=== PATIENT | male | born 1980 | race Caucasian/White ===

== ENCOUNTER 2023-08-04 18:48 | Observation (INO) ==
[2023-08-04] MEDS ORDERED: ONDANSETRON INJ 2 MG/ML 2 ML VIAL IV STA ×2 (19:22→20:36)
[2023-08-04] MEDS ORDERED: MoRPHine SULFATE 4 MG/ML 1 ML CARP\\VIAL IV STA (19:22)
[2023-08-04] MEDS ORDERED: OPTIRAY 320 100ml IV ONE (19:49)
[2023-08-04 19:55] LABS: iSTAT Creatinine 0.8 mg/dl (0.6-1.3); iSTAT Ionized Calcium 1.16 mmol/l (1.12-1.32); iSTAT Potassium 4.1 mmol/L (3.3-5.0)
[2023-08-04 19:55] LABS: Basophils # (auto) 0.04 K/uL (0.00-0.20); Basophils % (auto) 0.6 %; Eosinophils # (auto) 0.04 K/uL (0.00-0.50); Eosinophils % (auto) 0.6 %; Hematocrit (blood only) 40.6 % (42.0-52.0); Hemoglobin 14.9 g/dl (14.0-18.0); Immature Granulocytes # (auto) 0.02 K/uL (0.01-0.20); Immature Granulocytes % (auto) 0.3 %; Lymphocytes % (auto) 13.4 %; Mean Corpuscular Hemoglobin 32.3 pg (25.0-34.0); Mean Corpuscular Hgb Conc 36.7 g/dL (32.0-36.0); Mean Corpuscular Volume 87.9 fL (80.0-100.0); Mean Platelet Volume 9.4 fL (9.4-12.4); Monocytes # (auto) 0.37 K/uL (0.11-0.59); Monocytes % (auto) 5.5 %; Neutrophils # (auto) 5.35 K/uL (1.40-6.50); Neutrophils % (auto) 79.6 %; Platelet Count 264 K/uL (130-400); RDW Coefficient of Variation 11.3 % (11.5-14.5); RDW Standard Deviation 36.3 fL (36.4-46.3); Red Blood Count 4.62 M/uL (4.70-6.10); White Blood Count 6.72 K/ul (4.8-10.8)
--- NOTE | 2023-08-04 20:08 | CT Scan Report ---
Exam(s): CT ABDOMEN + PELVIS With Contrast IV Amt: 90ml EXAM: CT Abdomen and Pelvis With Intravenous Contrast CLINICAL HISTORY: Reason for exam: Abd pain. TECHNIQUE: Axial computed tomography images of the abdomen and pelvis with intravenous contrast. CTDI is 16.68 mGy and DLP is 963.26 mGy-cm. Automated exposure control was utilized for the study. A dose lowering technique was utilized adhering to the principles of ALARA. CONTRAST: Patient received 90ml of IV contrast COMPARISON: No relevant prior studies available. FINDINGS: Lung bases: Unremarkable. No mass. No consolidation. ABDOMEN: Liver: Unremarkable. No mass. Gallbladder and bile ducts: Unremarkable. No calcified stones. No ductal dilation. Pancreas: Unremarkable. No mass. No ductal dilation. Spleen: Unremarkable. No splenomegaly. Adrenals: Unremarkable. No mass. Kidneys and ureters: Obstructing 2 mm LEFT UVJ stone. Mild hydronephrosis of the LEFT kidney with moderate periureteral fluid and perinephric fluid, highly concerning for forniceal rupture or partial ureter rupture. Stomach and bowel: Diverticulosis, without acute diverticulitis. No small bowel obstruction. No free intraperitoneal air. PELVIS: Appendix: Normal appendix. Bladder: Unremarkable. No mass. Reproductive: Unremarkable as visualized. ABDOMEN and PELVIS: Intraperitoneal space: Unremarkable. No free air. No significant fluid collection. Bones/joints: No acute fracture. No dislocation. Soft tissues: Unremarkable. Vasculature: Unremarkable. No abdominal aortic aneurysm. Lymph nodes: Unremarkable. No enlarged lymph nodes. IMPRESSION: Obstructing 2 mm LEFT UVJ stone. Mild hydronephrosis of the LEFT kidney with moderate periureteral fluid and perinephric fluid, highly concerning for forniceal rupture or partial ureter rupture. Electronically signed by: Ney Betancur MD 08/04/23 20:07 PM
[2023-08-04 20:09] LABS: Alanine Aminotransferase 21 U/L (7-52); Albumin Globulin Ratio 1.7 (0.9-2); Albumin Level 4.9 gm/dl (3.4-5.0); Alkaline Phosphatase 78 U/L (34-104); Anion Gap 9 (3-11); Aspartate Aminotransferase 22 U/L (13-39); BUN Creatinine Ratio 10.8 (10-20); Bilirubin,Total 0.4 mg/dl (0.2-1.0); Blood Urea Nitrogen 10 mg/dl (6-23); Carbon Dioxide 25 mmol/L (21-32); Chloride 92 mmol/L (98-107); Est GFR (African American) 118.6 ml/min; Est GFR (Non-African American) 102.3 ml/min; Globulin 2.9 gm/dl (2.5-4.0); Glucose 107 mg/dl (70-99(Fasting)); Lipase 21 U/L (11-82); Potassium 4.1 mmol/L (3.5-5.1); Sodium 126 mmol/L (136-145); Total Protein 7.8 gm/dl (6.0-8.3)
[2023-08-04 20:12] LABS: Appearance Urine Cloudy (Clear); Bacteria Urine Automated Negative (Negative); Bilirubin Urine Negative (Negative); Blood Urine Negative (Negative); Cast Urine Automated 0 /lpf (0-5); Color Urine Yellow; Glucose Urine UA Negative (Negative); Ketones Urine Negative (Negative); Leukocyte Esterase Urine Negative (Negative); Nitrite Urine Negative (Negative); Protein Urine Negative (Negative); RBC Urine Automated 0-4 /hpf (0-4); Specific Gravity Urine 1.009 (1.000-1.030); Urobilinogen Urine Negative (Negative); WBC Urine Automated 0 /hpf (0-5); pH Urine >= 9.0 (4.5-7.5)
[2023-08-04] MEDS ORDERED: KETOROLAC TROMETHAMINE 15 MG/ML VIAL IV ONE (20:36)
[2023-08-04] MEDS ORDERED: HYDROmorphone INJ 0.5 MG/0.5 ML SYR IV STA (20:36)
[2023-08-04] MEDS ORDERED: TAMSULOSIN HCL 0.4 MG CAP PO ONE (21:24)
--- NOTE | 2023-08-04 21:24 | Urology Consultation ---
Date of Consultation August 04, 2023 Assessment & Plan (1) Nephrolithiasis: I discussed with the treating emergency room physician the patient is going to be admitted on the hospitalist service. From a urologic perspective we recommend proceeding as follows: Provide IV fluid for hydration Provide patient Flomax for maximal expulsive therapy Provide analgesics Provide antiemetics Strain all urine and save any kidney stones that he passes so they can be properly analyzed Due to concern the patient has a forniceal or ureteral rupture is recommended the patient be admitted to the hospital for observation. At the present time there is no needFor an emergent urologic procedure as patient is normotensive without tachycardia or fever. He also does not have acute kidney injury or leukocytosis. If the patient does develop any fevers, tachycardia, or hypotension or additional signs suggestive of sepsis ureteral stent may need to be performed on an emergent basis, therefore recommend making the patient n.p.o. except for medications at the present time Additional recommendations were forthcoming based on his clinical course as unfolds History of Present Illness Reason for Consultation: Nephrolithiasis History of Present Illness Who was in his usual state of health feeling fine until approximately 5:30 PM this evening when he developed severe left-sided flank pain with some radiation to the front of his abdomen. He has had associated nausea and vomiting. He denies any fevers or shakes but did have occasional chills. Patient denies any dysuria or hematuria but he is having urinary frequency. He has no history of kidney stones in the past. This is a 42-year-old male since arrival to hospital the patient has had labs and imaging which independent reviewed. CT scan of the abdomen pelvis showed the patient had an obstructing 2 mm kidney stone at the left ureterovesical junction resulting in mild hydronephrosis. There is also some periureteral and perinephric fluid which was concerning for forniceal or ureteral rupture. Labs include a CBC were white blood cell count was normal. Hemoglobin was normal and hematocrit was slightly low at 40.6. The patient's platelet count was also within the normal range. Chemistry profile showed sodium was 126 with normal potassium. BUN and creatinine were within normal range. There is no elevation of patient's LFTs or lipase. Urinalysis not indicative of infection. At the time of my interview the patient was resting comfortably in bed and he was in no distress. Concerning past medical history the patient is treated for trigeminal neuralgia and hypertension Concerning past surgical history the patient has had neurovascular decompression for his trigeminal neuralgia Concerning social history he is a non-smoker Concerning family history he denies family history of kidney stones. Allergies Allergy/AdvReac Type Severity Reaction Status Date / Time No Known Allergies Allergy Unverified 07/31/20 08:24 Home Medications Medication Instructions Recorded Confirmed Type gabapentin 800 mg tablet 900 mg PO BID 07/31/20 07/31/20 History oxcarbazepine 600 mg tablet 900 mg PO BID 07/31/20 07/31/20 History (Trileptal) Patient History Medical History (Updated 08/04/23 @ 21:21 by Gary Tavarez PA-C) Trigeminal neuralgia Social History Smoking Status: Never smoker Hx Alcohol Use: No Hx Substance Use: No Preferred Language: Bolivian Visual Impairment: No Limitations Hearing Ability: Normal Beliefs That Will Affect Care: None Current Living Situation: Family current occupational status: employed How many Children do You have: 2 Feels Safe at Home: Yes Review of Systems Constitutional: + chills; no fever Ear, Nose, Mouth, Throat: no ear pain Respiratory: no cough Cardiovascular: no chest pain Gastrointestinal: + abdominal pain (Radiating from left flank), + nausea and + vomiting Genitourinary: + as per Subjective / HPI Musculoskeletal: + back pain (Left flank) Integumentary: no rash Neurologic: no localized weakness Physical Exam Constitutional: WD/WN, vitals as above Eyes: no conjunctival abnormality ENMT: Ears: no hearing impairment and no external ear abnormality Mouth: no oropharynx abnormality Neck: trachea midline Respiratory: normal respiratory effort; no respiratory distress and no labored breathing Cardiovascular: Rate/Rhythm: regular rate and regular rhythm Gastrointestinal (Abdomen): Abdomen is soft and nonrigid. It is nondistended. There is no pain with palpation. Musculoskeletal: No calf tenderness Skin: no rashes, warm and dry Neurologic: moves all extremities Psychiatric: A+Ox3, euthymic affect Genitourinary: Patient had slight/minimal CVA tenderness with percussion on the left. No CVA tenderness with percussion on the right Results & Data Vital Signs (Past 12 Hours) Vital Signs Temp Pulse Resp BP Pulse Ox O2 Del Method 08/04/23 20:28 72 08/04/23 19:27 146/98 H 08/04/23 19:02 36.5 C 88 26 H 100 Room Air PG Care Time/CCT Total # of Minutes Spent Total Time Spent with Patient: Total time spent is greater than 50% in coordination of care (as documented) at patient's floor/unit and/or counseling patient: Coding Level of Care Code 03157 IN/OBS CONSULT LVL 5,80M Diagnoses Nephrolithiasis N20.0
--- NOTE | 2023-08-04 21:25 | Emergency Department Note ---
Impression & Plan Nephrolithiasis, Urethral tear ED Provider Note NAME: DAVID AMADOR AGE: 42 SEX: M : 1980 ARRIVES VIA: Walk-In INFORMANT: Patient, ED PROVIDER(S): Brittany Dawson MD CHIEF COMPLAINT: Abdominal pain HPI: This is a 42-year-old male presenting for severe abdominal pain. Patient states that at 530 he was eating dinner. He noted abruptly that he had significant abdominal pain, left-sided. He notes it was left lower quadrant rating into the groin. Call 911 and he has had persistent nausea since then. He does not excruciating pain. Otherwise no symptoms prior or yesterday. No fevers, chills, chest pain or shortness of breath. Patient notes no hematuria. ROS: See above HPI for pertinent positives & negatives. A total of 10 systems reviewed and were otherwise negative. PAST MEDICAL HISTORY: See Below PAST SURGICAL HISTORY: See Below FAMILY HISTORY: See Below SOCIAL HISTORY: See Below HOME MEDICATIONS: See Below ALLERGIES: See Below VITALS: See Below PHYSICAL EXAMINATION: General: Writhing in stretcher due to pain Head: Normocephalic and atraumatic Eyes: Normal inspection, extraocular muscles intact, no conjunctival pallor Ear, nose, throat: Normal external exam Neck: Normal range of motion Respiratory: Patient is in no respiratory distress, lungs clear to auscultation bilaterally Cardiovascular: RRR without murmur appreciated GI: Soft, left lower quadrant tenderness without rebound Extremities: pulses intact with good cap refills, no LE pitting edema or calf tenderness Neuro: The patient awake and alert, appropriately conversive,no focal decifits Skin: Warm, dry, and intact MEDICAL DECISION MAKING: This is a 42-year-old male presenting for severe abdominal pain. Left lower quadrant rating to groin. Consider SBO, pancreatitis, diverticulitis, renal colic, pyelonephritis. Patient had CT imaging started at triage. Results come back as 2 mm left UVJ stone with concern for forniceal rupture versus partial ureter tear. Patient's urinalysis reveals no signs of UTI at this time. Otherwise incidentally patient is hyponatremic to 126 of unclear etiology at this time. Discussed findings with on-call PA for urology. He spoke with attending who recommends admission for observation, n.p.o. status. If any fevers or persistent pain, will require stenting as per urology. The meantime will admit to medicine for hyponatremia renal colic and this suspected forniceal versus partial ureteral tear. Triage Nursing notes reviewed. Prior medical records reviewed Vital Signs: reviewed and remarkable for no significant abnormalities Differential diagnosis: ER treatment provided: See below Diagnostics interpreted by me: ECG: None Cardiac Monitoring: An order was placed for continuous cardiac monitoring. The monitor shows a rate of 74 with sinus rhythm. Laboratory studies: As stated above and show below. Imaging studies: See below. Consultation(s): None Past Med/Surg History Medical History (Updated 08/05/23 @ 00:46 by Brittany Dawson MD) Trigeminal neuralgia Social History Smoking Status: Never smoker Hx Alcohol Use: No Hx Substance Use: No Preferred Language: Pakistani Visual Impairment: No Limitations Hearing Ability: Normal Beliefs That Will Affect Care: None Current Living Situation: Family current occupational status: employed How many Children do You have: 2 Feels Safe at Home: Yes Allergies Allergies Allergy/AdvReac Type Severity Reaction Status Date / Time No Known Allergies Allergy Verified 08/04/23 21:37 Home Meds Home Medications Medication Instructions Recorded Confirmed gabapentin 300 mg capsule 900 mg PO BID 08/04/23 08/04/23 lisinopril 10 mg tablet 10 mg PO DAILY 08/04/23 08/04/23 oxcarbazepine 300 mg tablet 900 mg PO BID 08/04/23 08/04/23 Results & Data (ED) Vital Signs Vital Signs - 24 hr 08/04/23 19:02 08/04/23 19:27 08/04/23 20:28 Temperature 36.5 C Temperature Source Temporal Artery Scan Pulse Rate 88 72 Pulse Rate [Apical] Respiratory Rate 26 H Respiratory Effort / Characteristics Non-Labored Spontaneous Respiratory Depth Normal Blood Pressure [Right Arm] 146/98 H Blood Pressure Mean [Right Arm] 114 Blood Pressure Position Sitting Blood Pressure Position [Right Arm] Sitting Pulse Oximetry 100 Oxygen Delivery Method Room Air Sepsis Recent Fever Within 48 Hours No Sepsis New/Unexplained Change in Mental Status N/A Sepsis Action Taken by Nursing No Action Required 08/04/23 23:09 08/05/23 00:32 Temperature Temperature Source Pulse Rate 74 Pulse Rate [Apical] 74 Respiratory Rate 15 Respiratory Effort / Characteristics Respiratory Depth Blood Pressure [Right Arm] 145/81 H Blood Pressure Mean [Right Arm] 102 Blood Pressure Position Blood Pressure Position [Right Arm] Pulse Oximetry 98 Oxygen Delivery Method Room Air Sepsis Recent Fever Within 48 Hours Sepsis New/Unexplained Change in Mental Status Sepsis Action Taken by Nursing Laboratory Data 08/04/23 19:33 08/04/23 19:33 Lab Results 08/04/23 08/04/23 08/04/23 Range/Units 19:33 19:33 19:41 WBC 6.72 (4.8-10.8) K/ul RBC 4.62 L (4.70-6.10) M/uL Hgb 14.9 (14.0-18.0) g/dl POC Hgb 15.0 (14.0-18.0) g/dl Hct 40.6 L (42.0-52.0) % POC Hct 44 (42-52) % MCV 87.9 (80.0-100.0) fL MCH 32.3 (25.0-34.0) pg MCHC 36.7 H (32.0-36.0) g/dL RDW Std Deviation 36.3 L (36.4-46.3) fL RDW Coeff of Mi 11.3 L (11.5-14.5) % Plt Count 264 (130-400) K/uL MPV 9.4 (9.4-12.4) fL Immature Gran % (Auto) 0.3 % Neut % (Auto) 79.6 % Lymph % (Auto) 13.4 % Pope % (Auto) 5.5 % Eos % (Auto) 0.6 % Baso % (Auto) 0.6 % Neut # (Auto) 5.35 (1.40-6.50) K/uL Lymph # (Auto) 0.90 L (1.20-3.40) K/uL Pope # (Auto) 0.37 (0.11-0.59) K/uL Eos # (Auto) 0.04 (0.00-0.50) K/uL Baso # (Auto) 0.04 (0.00-0.20) K/uL Immature Gran # (Auto) 0.02 (0.01-0.20) K/uL POC Sodium 128 L (135-144) mmol/L Sodium 126 L (136-145) mmol/L POC Potassium 4.1 (3.3-5.0) mmol/L Potassium 4.1 (3.5-5.1) mmol/L POC Chloride 90 L (101-112) mmol/L Chloride 92 L (98-107) mmol/L Carbon Dioxide 25 (21-32) mmol/L POC Total CO2 23 L (24-31) mmol/L Anion Gap 9 (3-11) POC Anion Gap 19.0 (16-25) mmol/L POC BUN 9 (7-18) mg/dl BUN 10 (6-23) mg/dl Creatinine 0.93 (0.6-1.4) mg/dl POC Creatinine 0.8 (0.6-1.3) mg/dl Est Cr Clr Drug Dosing Not Reportable Est GFR ( Amer) 118.6 ml/min Est GFR (Non-Af Amer) 102.3 ml/min BUN/Creatinine Ratio 10.8 (10-20) Glucose 107 H (70-99(Fasting)) mg/dl POC Glucose (other) 110 H (70-99) mg/dl Calcium 10.0 (8.6-10.3) mg/dl POC Ioniz Calcium Celestina 1.16 (1.12-1.32) mmol/l Total Bilirubin 0.4 (0.2-1.0) mg/dl AST 22 (13-39) U/L ALT 21 (7-52) U/L Alkaline Phosphatase 78 (34-104) U/L Total Protein 7.8 (6.0-8.3) gm/dl Albumin 4.9 (3.4-5.0) gm/dl Globulin 2.9 (2.5-4.0) gm/dl Albumin/Globulin Ratio 1.7 (0.9-2) Lipase 21 (11-82) U/L Urine Color Urine Appearance (Clear) Urine pH (4.5-7.5) Ur Specific Keyser (1.000-1.030) Urine Protein (Negative) Urine Glucose (UA) (Negative) Urine Ketones (Negative) Urine Blood (Negative) Urine Nitrite (Negative) Urine Bilirubin (Negative) Urine Urobilinogen (Negative) Ur Leukocyte Esterase (Negative) Urine WBC (Auto) (0-5) /hpf Urine RBC (Auto) (0-4) /hpf U Hyaline Cast (Auto) (0-5) /lpf U Epithel Cells (Auto) (0-5) /lpf Urine Bacteria (Auto) (Negative) 08/04/23 Range/Units 19:50 WBC (4.8-10.8) K/ul RBC (4.70-6.10) M/uL Hgb (14.0-18.0) g/dl POC Hgb (14.0-18.0) g/dl Hct (42.0-52.0) % POC Hct (42-52) % MCV (80.0-100.0) fL MCH (25.0-34.0) pg MCHC (32.0-36.0) g/dL RDW Std Deviation (36.4-46.3) fL RDW Coeff of Mi (11.5-14.5) % Plt Count (130-400) K/uL MPV (9.4-12.4) fL Immature Gran % (Auto) % Neut % (Auto) % Lymph % (Auto) % Pope % (Auto) % Eos % (Auto) % Baso % (Auto) % Neut # (Auto) (1.40-6.50) K/uL Lymph # (Auto) (1.20-3.40) K/uL Pope # (Auto) (0.11-0.59) K/uL Eos # (Auto) (0.00-0.50) K/uL Baso # (Auto) (0.00-0.20) K/uL Immature Gran # (Auto) (0.01-0.20) K/uL POC Sodium (135-144) mmol/L Sodium (136-145) mmol/L POC Potassium (3.3-5.0) mmol/L Potassium (3.5-5.1) mmol/L POC Chloride (101-112) mmol/L Chloride (98-107) mmol/L Carbon Dioxide (21-32) mmol/L POC Total CO2 (24-31) mmol/L Anion Gap (3-11) POC Anion Gap (16-25) mmol/L POC BUN (7-18) mg/dl BUN (6-23) mg/dl Creatinine (0.6-1.4) mg/dl POC Creatinine (0.6-1.3) mg/dl Est Cr Clr Drug Dosing Est GFR ( Amer) ml/min Est GFR (Non-Af Amer) ml/min BUN/Creatinine Ratio (10-20) Glucose (70-99(Fasting)) mg/dl POC Glucose (other) (70-99) mg/dl Calcium (8.6-10.3) mg/dl POC Ioniz Calcium Celestina (1.12-1.32) mmol/l Total Bilirubin (0.2-1.0) mg/dl AST (13-39) U/L ALT (7-52) U/L Alkaline Phosphatase (34-104) U/L Total Protein (6.0-8.3) gm/dl Albumin (3.4-5.0) gm/dl Globulin (2.5-4.0) gm/dl Albumin/Globulin Ratio (0.9-2) Lipase (11-82) U/L Urine Color Yellow Urine Appearance Cloudy A (Clear) Urine pH >= 9.0 H (4.5-7.5) Ur Specific Keyser 1.009 (1.000-1.030) Urine Protein Negative (Negative) Urine Glucose (UA) Negative (Negative) Urine Ketones Negative (Negative) Urine Blood Negative (Negative) Urine Nitrite Negative (Negative) Urine Bilirubin Negative (Negative) Urine Urobilinogen Negative (Negative) Ur Leukocyte Esterase Negative (Negative) Urine WBC (Auto) 0 (0-5) /hpf Urine RBC (Auto) 0-4 (0-4) /hpf U Hyaline Cast (Auto) 0 (0-5) /lpf U Epithel Cells (Auto) 5-10 H (0-5) /lpf Urine Bacteria (Auto) Negative (Negative) Administered Medications Discontinued Medications Hydromorphone HCl (Hydromorphone Inj 0.5 Mg/0.5 Ml Syr) 0.5 mg IV NOW STA Stop: 08/04/23 20:37 Last Admin: 08/04/23 20:40 Dose: 0.5 mg Documented By: RIDDHI Ceftriaxone Sodium (Rocephin) 50 mls @ 100 mls/hr IV NOW STA; Protocol Stop: 08/04/23 23:15 Last Infusion: 08/05/23 00:29 Dose: 0 mls/hr Documented By: Admin: 08/04/23 23:09 Dose: 100 mls/hr Documented By: RIDDHI Ioversol (Optiray 320 100ml) 90 ml IV ONCE ONE Stop: 08/04/23 19:50 Last Admin: 08/04/23 19:49 Dose: 90 ml Documented By: RUBY Ketorolac Tromethamine (Ketorolac Tromethamine 15 Mg/Ml Vial) 15 mg IV NOW ONE Stop: 08/04/23 20:37 Last Admin: 08/04/23 20:43 Dose: 15 mg Documented By: RIDDHI Morphine Sulfate (Morphine Sulfate 4 Mg/Ml 1 Ml Carp\Vial) 4 mg IV NOW STA Stop: 08/04/23 19:23 Last Admin: 08/04/23 19:34 Dose: 4 mg Documented By: VONDA Ondansetron HCl (Ondansetron Inj 2 Mg/Ml 2 Ml Vial) 4 mg IV NOW STA Stop: 08/04/23 19:23 Last Admin: 08/04/23 19:34 Dose: 4 mg Documented By: VONDA Ondansetron HCl (Ondansetron Inj 2 Mg/Ml 2 Ml Vial) 4 mg IV NOW STA Stop: 08/04/23 20:37 Last Admin: 08/04/23 20:44 Dose: 4 mg Documented By: RIDDHI Tamsulosin HCl (Tamsulosin Hcl 0.4 Mg Cap) 0.4 mg PO NOW ONE Stop: 08/04/23 21:25 Last Admin: 08/04/23 21:39 Dose: 0.4 mg Documented By: RIDDHI Imaging Data Radiologist's Impression: Abdomen/Pelvis CT 08/04/23 19:22 Exam(s): CT ABDOMEN + PELVIS With Contrast IV Amt: 90ml EXAM: CT Abdomen and Pelvis With Intravenous Contrast CLINICAL HISTORY: Reason for exam: Abd pain. TECHNIQUE: Axial computed tomography images of the abdomen and pelvis with intravenous contrast. CTDI is 16.68 mGy and DLP is 963.26 mGy-cm. Automated exposure control was utilized for the study. A dose lowering technique was utilized adhering to the principles of ALARA. CONTRAST: Patient received 90ml of IV contrast COMPARISON: No relevant prior studies available. FINDINGS: Lung bases: Unremarkable. No mass. No consolidation. ABDOMEN: Liver: Unremarkable. No mass. Gallbladder and bile ducts: Unremarkable. No calcified stones. No ductal dilation. Pancreas: Unremarkable. No mass. No ductal dilation. Spleen: Unremarkable. No splenomegaly. Adrenals: Unremarkable. No mass. Kidneys and ureters: Obstructing 2 mm LEFT UVJ stone. Mild hydronephrosis of the LEFT kidney with moderate periureteral fluid and perinephric fluid, highly concerning for forniceal rupture or partial ureter rupture. Stomach and bowel: Diverticulosis, without acute diverticulitis. No small bowel obstruction. No free intraperitoneal air. PELVIS: Appendix: Normal appendix. Bladder: Unremarkable. No mass. Reproductive: Unremarkable as visualized. ABDOMEN and PELVIS: Intraperitoneal space: Unremarkable. No free air. No significant fluid collection. Bones/joints: No acute fracture. No dislocation. Soft tissues: Unremarkable. Vasculature: Unremarkable. No abdominal aortic aneurysm. Lymph nodes: Unremarkable. No enlarged lymph nodes. IMPRESSION: Obstructing 2 mm LEFT UVJ stone. Mild hydronephrosis of the LEFT kidney with moderate periureteral fluid and perinephric fluid, highly concerning for forniceal rupture or partial ureter rupture. Electronically signed by: Ney Betancur MD 08/04/23 20:07 PM Discharge Plan Visit Data Chief Complaint: Abdominal Pain Stated Complaint: ABD PAIN ED Provider: Brittany Dawson Discharge Problem: Nephrolithiasis, Urethral tear Forms Stand Alone Forms: My 911 Pets Prescriptions Prescriptions: No Action oxcarbazepine 300 mg tablet 900 mg PO BID lisinopril 10 mg tablet 10 mg PO DAILY gabapentin 300 mg capsule 900 mg PO BID Referrals Referrals: Quin Castellano DO [Primary Care Provider] -
--- NOTE | 2023-08-04 22:22 | History & Physical Report ---
Date of Service August 04, 2023 Assessment & Plan (1) Calculus of ureterovesical junction (UVJ): (2) Calculus of distal left ureter: (3) Left ureteral injury: (4) Trigeminal neuralgia: (5) Hypertension: Plan Calculus of distal left UVJ/possible forniceal or partial ureteral rupture- NPO Follow urine culture and sensitivity Acetaminophen 1 g IV every 8 hours as needed for mild pain or fever Dilaudid 0.25 mg IV every 3 hours as needed for moderate pain Dilaudid 0.5 mg IV every 3 hours as needed for severe pain Ceftriaxone 2 g IV daily Tamsulosin 0.4 mg NPO daily Consult urology Trigeminal neuralgia- Continue gabapentin 900 mg p.o. twice daily and oxcarbazepine 900 mg twice daily Was hypertension- Hold lisinopril History of Present Illness Chief Complaint: The patient presents to the emergency department with complaint of a cute onset of severe left lower abdominal pain that began around 530 this evening while eating dinner. He did have some nausea and vomiting associated with the pain, a nd has not tried anything since dinner Primary Care Provider: Quin Castellano DO The patient is a 42-year-old male with a past medical history including trigeminal neuralgia and hypertension. He presents to the emergency department with acute onset at 530 this evening of left lower quadrant pain. He had no previous occurrence this type of pain. He denies any recent trauma. Significant laboratories: Sodium 126, glucose 107 CT scan abdomen pelvis shows a 2 mm left UVJ stone, with mild left hydronephrosis, moderate periureteral and perinephric fluid, and concern regarding forniceal or partial ureteral rupture. Allergies Allergy/AdvReac Type Severity Reaction Status Date / Time No Known Allergies Allergy Verified 08/04/23 21:37 Home Medications Medication Instructions Recorded Confirmed Type gabapentin 300 mg capsule 900 mg PO BID 08/04/23 08/04/23 History lisinopril 10 mg tablet 10 mg PO DAILY 08/04/23 08/04/23 History oxcarbazepine 300 mg tablet 900 mg PO BID 08/04/23 08/04/23 History Past Med/Surg History Medical History (Updated 08/05/23 @ 04:17 by Bo Walters MD) Hypertension Trigeminal neuralgia Social History Smoking Status: Never smoker Hx Alcohol Use: No Hx Substance Use: No Preferred Language: Korean Communication Ability: Effective Visual Impairment: No Limitations Hearing Ability: Normal Beliefs That Will Affect Care: None Current Living Situation: Spouse current occupational status: employed How many Children do You have: 2 Feels Safe at Home: Yes Safety Concerns: Feels Safe At This Time Review of Systems Review of Systems: The patient denies chest pain, palpitations, shortness of breath, dyspnea on exertion, cough, lower extremity swelling, sore throat, fevers, chills, sweats, diarrhea , constipation, blood in urine or stool, dysuria, urinary frequency or urgency, lightheadedness, dizziness, headache, memory loss, loss of consciousness, rash, abnormal bruising or bleeding, imbalance, focal or generalized weakness, numbness or tingling in arms or legs, generalized arthralgias or myalgias, neck pain, or night sweats. The review of systems is otherwise negative other than for that already noted above, and at least 10 systems have been reviewed. Physical Exam Physical Exam: The patient is awake, alert and oriented 3, well developed and well nourished, normocephalic and atraumatic, lying in bed and in no acute distress. HEENT--PERRL, EOMI, mucous membranes and oropharynx mildly dry. Neck--supple. No JVD. No bruits. Thyroid normal, trachea midline, no adenopathy. Heart--normal S1 and S2. No murmurs, rubs or gallops. Lungs--clear bilaterally, no respiratory distress, no accessory muscle use. Abdomen--normal bowel sounds and soft. Nontender. Nondistended, no hernias or masses, no organomegaly. Extremities--no cyanosis or clubbing. No edema. Dermatologic--normal skin turgor, normal color, no abnormal lymph nodes, no rash. Neurologic--cranial nerves II through XII grossly intact. Rheumatologic--normal range of motion. Psychiatric--normal affect. Results & Data Results & Data Vital Signs (Past 12 Hours) Vital Signs Temp Pulse Resp BP Pulse Ox O2 Del Method 08/04/23 20:28 72 08/04/23 19:27 146/98 H 08/04/23 19:02 36.5 C 88 26 H 100 Room Air Laboratory Results Laboratory Results WBC 6.72 K/ul (4.8-10.8) 08/04/23 19:33 RBC 4.62 M/uL (4.70-6.10) L 08/04/23 19:33 Hgb 14.9 g/dl (14.0-18.0) 08/04/23 19:33 POC Hgb 15.0 g/dl (14.0-18.0) 08/04/23 19:41 Hct 40.6 % (42.0-52.0) L 08/04/23 19:33 POC Hct 44 % (42-52) 08/04/23 19:41 MCV 87.9 fL (80.0-100.0) 08/04/23 19:33 MCH 32.3 pg (25.0-34.0) 08/04/23 19:33 MCHC 36.7 g/dL (32.0-36.0) H 08/04/23 19:33 RDW Std Deviation 36.3 fL (36.4-46.3) L 08/04/23 19: RDW Coeff of Mi 11.3 % (11.5-14.5) L 08/04/23 19:33 Plt Count 264 K/uL (130-400) 08/04/23 19: MPV 9.4 fL (9.4-12.4) 08/04/23 19:33 Immature Gran % (Auto) 0.3 % 08/04/23 19:33 Neut % (Auto) 79.6 % 08/04/23 19:33 Lymph % (Auto) 13.4 % 08/04/23 19:33 [place] % (Auto) 5.5 % 08/04/23 19:33 Eos % (Auto) 0.6 % 08/04/23 19:33 Baso % (Auto) 0.6 % 08/04/23 19:33 Neut # (Auto) 5.35 K/uL (1.40-6.50) 08/04/23 19:33 Lymph # (Auto) 0.90 K/uL (1.20-3.40) L 08/04/23 19:33 [place] # (Auto) 0.37 K/uL (0.11-0.59) 08/04/23 19:33 Eos # (Auto) 0.04 K/uL (0.00-0.50) 08/04/23 19:33 Baso # (Auto) 0.04 K/uL (0.00-0.20) 08/04/23 19:33 Immature Gran # (Auto) 0.02 K/uL (0.01-0.20) 08/04/23 19:33 POC Sodium 128 mmol/L (135-144) L 08/04/23 19:41 Sodium 126 mmol/L (136-145) L 08/04/23 19:33 POC Potassium 4.1 mmol/L (3.3-5.0) 08/04/23 19:41 Potassium 4.1 mmol/L (3.5-5.1) 08/04/23 19:33 POC Chloride 90 mmol/L (101-112) L 08/04/23 19:41 Chloride 92 mmol/L (98-107) L 08/04/23 19:33 Carbon Dioxide 25 mmol/L (21-32) 08/04/23 19:33 POC Total CO2 23 mmol/L (24-31) L 08/04/23 19:41 Anion Gap 9 (3-11) 08/04/23 19:33 POC Anion Gap 19.0 mmol/L (16-25) 08/04/23 19:41 POC BUN 9 mg/dl (7-18) 08/04/23 19:41 BUN 10 mg/dl (6-23) 08/04/23 19:33 Creatinine 0.93 mg/dl (0.6-1.4) 08/04/23 19:33 POC Creatinine 0.8 mg/dl (0.6-1.3) 08/04/23 19:41 Est Cr Clr Drug Dosing Not Reportable 08/04/23 19:33 Est GFR ( Amer) 118.6 ml/min 08/04/23 19:33 Est GFR (Non-Af Amer) 102.3 ml/min 08/04/23 19:33 BUN/Creatinine Ratio 10.8 (10-20) 08/04/23 19:33 Glucose 107 mg/dl (70-99(Fasting)) H 08/04/23 19:33 POC Glucose (other) 110 mg/dl (70-99) H 08/04/23 19:41 Calcium 10.0 mg/dl (8.6-10.3) 08/04/23 19:33 POC Ioniz Calcium [place] 1.16 mmol/l (1.12-1.32) 08/04/23 19:41 Total Bilirubin 0.4 mg/dl (0.2-1.0) 08/04/23 19:33 AST 22 U/L (13-39) 08/04/23 19:33 ALT 21 U/L (7-52) 08/04/23 19:33 Alkaline Phosphatase 78 U/L (34-104) 08/04/23 19:33 Total Protein 7.8 gm/dl (6.0-8.3) 08/04/23 19:33 Albumin 4.9 gm/dl (3.4-5.0) 08/04/23 19:33 Globulin 2.9 gm/dl (2.5-4.0) 08/04/23 19:33 Albumin/Globulin Ratio 1.7 (0.9-2) 08/04/23 19:33 Lipase 21 U/L (11-82) 08/04/23 19:33 Urine Color Yellow 08/04/23 19:50 Urine Appearance Cloudy (Clear) A 08/04/23 19:50 Urine pH >= 9.0 (4.5-7.5) H 08/04/23 19:50 Ur Specific [place] 1.009 (1.000-1.030) 08/04/23 19:50 Urine Protein Negative (Negative) 08/04/23 19:50 Urine Glucose (UA) Negative (Negative) 08/04/23 19:50 Urine Ketones Negative (Negative) 08/04/23 19:50 Urine Blood Negative (Negative) 08/04/23 19:50 Urine Nitrite Negative (Negative) 08/04/23 19:50 Urine Bilirubin Negative (Negative) 08/04/23 19:50 Urine Urobilinogen Negative (Negative) 08/04/23 19:50 Ur Leukocyte Esterase Negative (Negative) 08/04/23 19:50 Urine WBC (Auto) 0 /hpf (0-5) 08/04/23 19:50 Urine RBC (Auto) 0-4 /hpf (0-4) 08/04/23 19:50 U Hyaline Cast (Auto) 0 /lpf (0-5) 08/04/23 19:50 U Epithel Cells (Auto) 5-10 /lpf (0-5) H 08/04/23 19:50 Urine Bacteria (Auto) Negative (Negative) 08/04/23 19:50 Impressions Abdomen/Pelvis CT 08/04/23 19:22 Exam(s): CT ABDOMEN + PELVIS With Contrast IV Amt: 90ml EXAM: CT Abdomen and Pelvis With Intravenous Contrast CLINICAL HISTORY: Reason for exam: Abd pain. TECHNIQUE: Axial computed tomography images of the abdomen and pelvis with intravenous contrast. CTDI is 16.68 mGy and DLP is 963.26 mGy-cm. Automated exposure control was utilized for the study. A dose lowering technique was utilized adhering to the principles of ALARA. CONTRAST: Patient received 90ml of IV contrast COMPARISON: No relevant prior studies available. FINDINGS: Lung bases: Unremarkable. No mass. No consolidation. ABDOMEN: Liver: Unremarkable. No mass. Gallbladder and bile ducts: Unremarkable. No calcified stones. No ductal dilation. Pancreas: Unremarkable. No mass. No ductal dilation. Spleen: Unremarkable. No splenomegaly. Adrenals: Unremarkable. No mass. Kidneys and ureters: Obstructing 2 mm LEFT UVJ stone. Mild hydronephrosis of the LEFT kidney with moderate periureteral fluid and perinephric fluid, highly concerning for forniceal rupture or partial ureter rupture. Stomach and bowel: Diverticulosis, without acute diverticulitis. No small bowel obstruction. No free intraperitoneal air. PELVIS: Appendix: Normal appendix. Bladder: Unremarkable. No mass. Reproductive: Unremarkable as visualized. ABDOMEN and PELVIS: Intraperitoneal space: Unremarkable. No free air. No significant fluid collection. Bones/joints: No acute fracture. No dislocation. Soft tissues: Unremarkable. Vasculature: Unremarkable. No abdominal aortic aneurysm. Lymph nodes: Unremarkable. No enlarged lymph nodes. IMPRESSION: Obstructing 2 mm LEFT UVJ stone. Mild hydronephrosis of the LEFT kidney with moderate periureteral fluid and perinephric fluid, highly concerning for forniceal rupture or partial ureter rupture. Electronically signed by: Ney Betancur MD 08/04/23 20:07 PM Code Status & VTE Plan Code Status Full code VTE Prophylaxis Plan VTE Prophylaxis will be ordered: Yes PG Care Time/CCT Total # of Minutes Spent Total Time Spent with Patient: Total time spent is greater than 50% in coordination of care (as documented) at patient's floor/unit and/or counseling patient: Coding Level of Care Code 02687 INT INP/OBS CARE MIN Diagnoses Calculus of ureterovesical junction (UVJ) N20.1 Calculus of distal left ureter N20.1 Left ureteral injury S37.10XA Trigeminal neuralgia G50.0 Hypertension I10
[2023-08-05] MEDS ORDERED: ONDANSETRON INJ 2 MG/ML 2 ML VIAL IV PRN (01:30)
[2023-08-05] MEDS ORDERED: HYDROmorphone INJ 0.5 MG/0.5 ML SYR IV PRN ×2 (01:30)
[2023-08-05] MEDS ORDERED: NSS + 20MEQ KCL 20 MEQ/1,000 ML BAG IV SCH (02:30)
[2023-08-05] MEDS: Patient's HEIGHT &/or WEIGHT Needed SCH ×2 (02:53→18:53)
[2023-08-05 04:46] LABS: Basophils # (auto) 0.02 K/uL (0.00-0.20); Basophils % (auto) 0.2 %; Eosinophils # (auto) 0.02 K/uL (0.00-0.50); Eosinophils % (auto) 0.2 %; Hematocrit (blood only) 39.3 % (42.0-52.0); Hemoglobin 14.2 g/dl (14.0-18.0); Immature Granulocytes # (auto) 0.03 K/uL (0.01-0.20); Immature Granulocytes % (auto) 0.3 %; Lymphocytes # (auto) 1.28 K/uL (1.20-3.40); Lymphocytes % (auto) 12.7 %; Mean Corpuscular Hemoglobin 32.2 pg (25.0-34.0); Mean Corpuscular Hgb Conc 36.1 g/dL (32.0-36.0); Mean Corpuscular Volume 89.1 fL (80.0-100.0); Mean Platelet Volume 9.7 fL (9.4-12.4); Monocytes # (auto) 0.72 K/uL (0.11-0.59); Monocytes % (auto) 7.2 %; Neutrophils # (auto) 7.99 K/uL (1.40-6.50); Neutrophils % (auto) 79.4 %; Platelet Count 258 K/uL (130-400); RDW Coefficient of Variation 11.4 % (11.5-14.5); RDW Standard Deviation 36.7 fL (36.4-46.3); Red Blood Count 4.41 M/uL (4.70-6.10); White Blood Count 10.06 K/ul (4.8-10.8)
[2023-08-05 04:52] LABS: Albumin Level 4.4 gm/dl (3.4-5.0); BUN Creatinine Ratio 10.8 (10-20); Calcium 9.2 mg/dl (8.6-10.3); Creatinine Clr Calc Pharmacy 96.3 ml/min; Est GFR (African American) 106.1 ml/min; Est GFR (Non-African American) 91.5 ml/min; Magnesium 2.1 mg/dl (1.7-2.4); Phosphorus 5.3 mg/dl (2.5-4.9); Potassium 4.3 mmol/L (3.5-5.1)
[2023-08-05] MEDS ORDERED: OXcarbazepine 150 MG TABLET PO SCH (09:00)
--- NOTE | 2023-08-05 09:41 | Urology Progress Note ---
Date of Service August 05, 2023 Assessment & Plan (1) Calculus of ureterovesical junction (UVJ): (2) Left flank pain: Plan 42yo/M admitted with intractable left flank pain secondary to an obstructing 2mm LEFT UVJ stone with moderate periureteral/perinephric fluid concerning for f orniceal rupture Afebrile and hemodynamically stable. Labs reviewedWBC 10.06, hemoglobin 14.2, creatinine 1.02. Urinalysis without signs of infection or blood. We discussed acute stone management with cystoscopy, stent placement, possible stone treatment. Ureteral stents were discussed as well as postoperative issues and pain management. He is aware a second procedure may be necessary depending on findings. We also discussed conservative management and trial of passage with max expulsion therapy. Stone passage rates given size and location were reviewed. All questions were answered. Patient would like to proceed with cystoscopy, left retrograde pyelogram, left ureteral stent placement, possible ureteroscopy, stone treatment depending on findings. Risks and benefits to be reviewed with patient by Dr. Krishnamurthy. Covered with scheduled IV ceftriaxone. Continue supportive care and pain management. Strain all urine. Keep NPO. Urology will follow. Admission and Anticipated Discharge Date Admission Date: August 04, 2023 Supervising Physician Co-Signing Physician Notes Plan to move forward with stone treatment today cysto, ureteroscopy, laser lithotripsy and stent placement Subjective Patient examined at bedside this AM. Awake, resting in bed on arrival. No acute distress. Still with left-sided pain, managing with medication. Pain worsens with movemen t. Denies fevers, chills, nausea, vomiting at present. Voiding without issue. Denies hematuria or dysuria. Has been NPO. Denies any noticeable stone passage. Review of Systems Constitutional: as per Subjective / HPI Gastrointestinal: as per Subjective / HPI Genitourinary: + as per Subjective / HPI Physical Exam Constitutional: no acute distress Respiratory: no respiratory distress and no labored breathing Skin: No visible rashes or lesions to exposed skin areas Neurologic: moves all extremities and awake Psychiatric: A+Ox3, euthymic affect Results & Data Vital Signs (Past 12 Hours) Vital Signs Pulse Pulse Resp BP BP Pulse Ox O2 Del Method 08/05/23 07:03 60 08/05/23 04:00 61 16 134/73 08/05/23 02:43 60 12 142/85 H 97 Room Air 08/05/23 00:30 67 11 L 08/05/23 00:00 69 11 L 08/04/23 23:39 69 12 08/04/23 22:30 69 13 08/04/23 22:30 143/89 H 08/04/23 22:00 68 13 08/04/23 22:00 125/66 08/05/23 00:32 74 08/04/23 23:09 74 15 145/81 H 98 Room Air PG Care Time/CCT Total # of Minutes Spent Total Time Spent with Patient: Total time spent is greater than 50% in coordination of care (as documented) at patient's floor/unit and/or counseling patient: Coding Level of Care Code 62050 SUB INP/OBS CARE 2/35MIN Diagnoses Calculus of ureterovesical junction (UVJ) N20.1 Left flank pain R10.9
[2023-08-05] MEDS: GABAPENTIN 300 MG CAP PO SCH ×2 (10:45→21:53)
[2023-08-05] MEDS: HYDROmorphone INJ 0.5 MG/0.5 ML SYR IV PRN ×3 (10:46→23:54)
[2023-08-05] MEDS ORDERED: MIDAZOLAM HCL 1 MG/ML 2ML VIAL ONE (11:47)
[2023-08-05] MEDS ORDERED: fentaNYL citrate PF 100 MCG/2 ML VIAL ONE (11:47)
[2023-08-05] MEDS ORDERED: ATROPINE SULFATE 0.1 MG/ML 10ML SYR IV PRN (12:16)
[2023-08-05] MEDS ORDERED: ePHEDrine sulfate 50 MG/ML AMP IV PRN (12:16)
[2023-08-05] MEDS ORDERED: fentaNYL citrate PF 100 MCG/2 ML VIAL IV PRN (12:16)
--- NOTE | 2023-08-05 12:16 | Anesthesiology Consultation ---
Date of Service August 05, 2023 Assessment & Plan (1) Encounter for pre-operative examination: Chart Review Chart Review: Acceptable Risk for Surgery and Patient NOT seen in Pre Admission Testing Consults Requested none History Surgery Operation Date: 08/05/23 08:35 Proposed Procedures p Cystoscopy, Left Retrograde Pyelogram, Left Stent Placement, Possible Ureteroscopy Stone Treatment - Martinez Krishnamurthy MD Height/Weight Height: 5 ft 9 in Weight: 82.8 kg Allergies Allergy/AdvReac Type Severity Reaction Status Date / Time No Known Allergies Allergy Verified 08/04/23 21:37 Medications Home Medications Medication Instructions Recorded Confirmed Last Taken gabapentin 300 mg capsule 900 mg PO BID 08/04/23 08/04/23 08/04/23 lisinopril 10 mg tablet 10 mg PO DAILY 08/04/23 08/04/23 08/04/23 oxcarbazepine 300 mg tablet 900 mg PO BID 08/04/23 08/04/23 08/04/23 Active Medications Generic Name Dose Route Start Last Admin Trade Name Freq PRN Reason Stop Dose Admin Gabapentin 900 mg 08/05/23 09:00 08/05/23 10:45 Gabapentin 300 Mg Cap PO 09/04/23 08:59 Not Given BID GABBIE Hydromorphone HCl 1 mg 08/05/23 07:49 08/05/23 10:46 Hydromorphone Inj 0.5 Mg/0.5 Ml Syr IV 08/19/23 01:29 1 mg Q3H PRN Administration Severe Pain (Scale 7, 8, 9,10) Potassium Chloride/Sodium Chloride 20 meq in 1,000 mls @ 80 mls/hr 08/05/23 02:30 08/05/23 02:50 Normal Saline W/20 Meq Kcl IV 08/05/23 14:59 80 mls/hr .[id number] GABBIE Administration Protocol NPO Date Last Intake of Fluids: 08/04/23 Time Last Intake of Fluids: 18:00 Date Last Intake of Solids: 08/04/23 Time Last Intake of Solids: 17:30 Past Medical History Medical History Hypertension Trigeminal neuralgia Social History Smoking Status: Never smoker Hx Alcohol Use: No Hx Substance Use: No Physical Exam Vital Signs Last Vital Signs Temp 98.2 F 08/05/23 11:53 Pulse 72 08/05/23 11:53 Resp 20 08/05/23 11:53 BP 153/94 H 08/05/23 11:53 Pulse Ox 98 08/05/23 11:53 O2 Del Method Room Air 08/05/23 11:53 Testing Laboratory Results 08/05/23 03:47 08/05/23 03:47 Urine Color Yellow 08/04/23 19:50 Urine Appearance Cloudy (Clear) A 08/04/23 19:50 Urine pH >= 9.0 (4.5-7.5) H 08/04/23 19:50 Ur Specific [place] 1.009 (1.000-1.030) 08/04/23 19:50 Urine Protein Negative (Negative) 08/04/23 19:50 Urine Glucose (UA) Negative (Negative) 08/04/23 19:50 Urine Ketones Negative (Negative) 08/04/23 19:50 Urine Nitrite Negative (Negative) 08/04/23 19:50 Ur Leukocyte Esterase Negative (Negative) 08/04/23 19:50 Urine WBC (Auto) 0 /hpf (0-5) 08/04/23 19:50 Urine RBC (Auto) 0-4 /hpf (0-4) 08/04/23 19:50 U Hyaline Cast (Auto) 0 /lpf (0-5) 08/04/23 19:50 U Epithel Cells (Auto) 5-10 /lpf (0-5) H 08/04/23 19:50 Urine Bacteria (Auto) Negative (Negative) 08/04/23 19:50
[2023-08-05] MEDS ORDERED: LACTATED RINGER'S 1,000 ML IV SCH (12:30)
[2023-08-05] MEDS ORDERED: LIDOCAINE 2% 2 ML VIAL/AMP(20MG/ML) INFIL ONE (12:35)
[2023-08-05] MEDS ORDERED: ONDANSETRON INJ 2 MG/ML 2 ML VIAL ONE (12:35)
[2023-08-05] MEDS ORDERED: PROPOFOL IV EMULSION 10 MG/ML 20 ML VIAL IV ONE (12:35)
[2023-08-05] MEDS ORDERED: DEXAMETHASONE SOD INJ 4 MG/ML VIAL ONE (12:35)
--- NOTE | 2023-08-05 13:01 | Operative Report ---
PG Post Operative Report Pre & Post Diagnosis Operation Date: 08/05/23 08:35 Pre-Op Diagnosis: Calculus of Ureterovesical Junction Post-Op Diagnosis: Calculus of Ureterovesical Junction I identified the patient and participated in the time-out.: Yes Procedure Operation Date: 08/05/23 08:35 Actual Procedures p Cystoscopy, Left Stent Placement, Ureteroscopy, Stone Extraction(Left) - Martinez Krishnamurthy MD Surgeon Martinez Krishnamurthy MD Single Needle Tufting Machine Operator none Estimated Blood Loss 0 Findings Consistent with Post-Op Diagnosis Specimens Stone for chemical analysis Description of Procedure The patient was identified in the preoperative holding area, appropriate informed consents were reviewed and completed and the patient was transferred to the operative suite. Upon arrival, appropriate antibiotics and anesthesia were administered and the patient was placed in dorsal lithotomy position and prepped and draped in sterile fashion. To begin the case to pass a 20 [place] cystoscope with 30 degree lens per inspection revealed a healthy-appearing urethra and moderate size prostate. Inspection of the bladder was unremarkable aside from mounding of his left distal ureter with a stone protruding through the orifice. I initially tried to use a 5 [place] open-ended catheter to milk the stone out of the ureter but was unsuccessful, I was able to push this just into the ureter and then advanced a semirigid ureteroscope into the ureter as well. There was a dilated area of ureter just above the UO and the stone was residing in the space. I attempted to irrigate it through the UO with UO slightly too tight. I was able to grasp with a basket and withdraw it. I then reentered with a semirigid ureteroscope and confirmed no other stones within the ureter. Aside from dilation it was healthy in appearance. I placed a 6 [place] by 26 cm double-J stent with a string left attached to the distal aspect. He was reversed of anesthesia. The stone was sent to the lab for chemical analysis. There were no complications. I attest to the content of the Intraoperative Record and any orders documented therein. Any exceptions are noted below.
--- NOTE | 2023-08-05 13:05 | Fluoroscopy Report ---
FL KUB CLINICAL HISTORY: LT RETROGRADE COMPARISON STUDY: Abdomen and pelvis CT 08/04/2023. FLUOROSCOPY TIME: 2 seconds. FLUOROSCOPY IMAGES: 1 Ka,r: 0.6 mGy FINDINGS: A left ureteral stent and guidewire noted within the left renal collecting system. Only the proximal portion of the guidewire/stent is identified. The distal portion is not included on this st udy. IMPRESSION: Fluoroscopic assistance as above. ACT 112: Negative or not required by law. Electronically signed by: Anshu Schneider M.D. 08/05/2023 1:03 PM
--- NOTE | 2023-08-05 13:20 | Anesthesiology Progress Note ---
Date of Service August 05, 2023 Anesthesia Post Procedure Vital Signs Vital Signs: Temp Pulse Pulse Resp BP BP Pulse Ox 08/05/23 13:10 97.5 F L 64 16 128/75 99 08/05/23 11:53 98.2 F 72 20 153/94 H 98 08/05/23 11:12 98.2 F 66 20 148/82 H 97 08/05/23 07:03 60 08/05/23 04:00 61 16 134/73 08/05/23 02:43 60 12 142/85 H 97 08/05/23 00:30 67 11 L 08/05/23 00:00 69 11 L 08/04/23 23:39 69 12 08/04/23 22:30 69 13 08/04/23 22:30 143/89 H 08/04/23 22:00 68 13 08/04/23 22:00 125/66 08/04/23 21:30 69 16 08/04/23 21:30 141/83 H 08/04/23 21:00 72 15 08/04/23 21:00 136/72 08/04/23 20:30 71 31 H 82 L 08/04/23 20:30 147/93 H 08/04/23 20:28 72 37 H 100 08/04/23 20:28 164/101 H 08/05/23 00:32 74 08/04/23 23:09 74 15 145/81 H 98 08/04/23 20:28 72 08/04/23 19:27 146/98 H 08/04/23 19:02 97.7 F 88 26 H 100 O2 Del Method O2 Flow Rate 08/05/23 13:10 Oxymask 3 08/05/23 11:53 Room Air 08/05/23 11:12 Room Air 08/05/23 07:03 08/05/23 04:00 08/05/23 02:43 Room Air 08/05/23 00:30 08/05/23 00:00 08/04/23 23:39 08/04/23 22:30 08/04/23 22:30 08/04/23 22:00 08/04/23 22:00 08/04/23 21:30 08/04/23 21:30 08/04/23 21:00 08/04/23 21:00 08/04/23 20:30 08/04/23 20:30 08/04/23 20:28 08/04/23 20:28 08/05/23 00:32 08/04/23 23:09 Room Air 08/04/23 20:28 08/04/23 19:27 08/04/23 19:02 Room Air Pain Intensity Left Lower Abdomen: Pain Intensity: 5 Transfer of Care Handoff Completed per policy Notes Mental Status: alert / awake / arousable and participated in evaluation Patient Amnestic to Procedure: Yes Nausea / Vomiting: adequately controlled Pain: adequately controlled Airway Patency, RR, SpO2: stable & adequate BP & HR: stable & adequate Hydration State: stable & adequate Anesthetic Complications: no major complications apparent and Pt Satisfied with anesthetic care
--- NOTE | 2023-08-05 13:27 | Hospitalist Progress Note ---
Date of Service August 05, 2023 Assessment & Plan (1) Calculus of ureterovesical junction (UVJ): Plan: Left side. 2 mm. Hopefully this will pass spontaneously. Appreciate urology consultation and recommendations. Continue IV fluids and parenteral pain control measures for now (2) SIADH (syndrome of inappropriate ADH production): Plan: Due to oxcarbazepine which has been placed on hold. Unfortunately, he is requiring IV fluids due to the left ureter stone. Fluid restriction cannot be ordered at this time. Serial labs (3) Trigeminal neuralgia: Plan: By history. Supportive care. Symptomatic management as needed (4) Hypertension: Plan: Stable. Continue current medical management Plan Hopeful discharge to home soon Admission and Anticipated Discharge Date Admission Date: August 04, 2023 Subjective Alert and oriented. Abdomen CT scan reveals a 2 mm stone at the left UV J. No associated hydronephrosis. He appears to have SIADH brought on by oxcarbazepine which has temporarily been placed on hold Review of Systems Review of Systems: Constitutional-no fever or chills ENT-no blurred vision, no double vision, no epistaxis, no sore throat Respiratory-no cough, no wheezing, no shortness of breath Cardiac-no palpitations, no chest pain, no syncope GI-no nausea, vomiting, diarrhea, melena, hematochezia -no urinary retention, no urinary incontinence, no dysuria, no hematuria. Left flank pain Musculoskeletal-no joint pain, no muscle tenderness Skin-no bruising, no rashes, no pruritus Neuro-no isolated weakness, no paresthesia, no weakness Psych-no depression, no anxiety Physical Exam Physical Exam: General-alert and oriented x3, no fevers, no chills HEENT-head atraumatic and normocephalic, pupils equal and reactive to light, extraocular muscles intact Neck-no lymphadenopathy or thyromegaly, trachea midline Chest-clear to auscultation percussion. No rales wheezing or rhonchi Cardiac-regular rate and rhythm, normal S1 and S2 Abdomen-normal bowel sounds, nontender, no hepatosplenomegaly Extremities-no cyanosis, clubbing, or edema Neuro-cranial nerves II through XII intact, motor and sensory function within normal limits, strength symmetrical, no focal deficits Psych-normal affect, normal mood Results & Data Results & Data Vital Signs (Past 12 Hours) Vital Signs Temp Pulse Pulse Resp BP BP Pulse Ox 08/05/23 13:20 62 16 135/77 99 08/05/23 13:10 36.4 C L 64 16 128/75 99 08/05/23 11:53 36.8 C 72 20 153/94 H 98 08/05/23 11:12 36.8 C 66 20 148/82 H 97 08/05/23 07:03 60 08/05/23 04:00 61 16 134/73 08/05/23 02:43 60 12 142/85 H 97 O2 Del Method O2 Flow Rate 08/05/23 13:20 Room Air 08/05/23 13:10 Oxymask 3 08/05/23 11:53 Room Air 08/05/23 11:12 Room Air 08/05/23 07:03 08/05/23 04:00 08/05/23 02:43 Room Air Laboratory Results 08/05/23 03:47 08/05/23 03:47 PG Care Time/CCT Total # of Minutes Spent Total Time Spent with Patient: Total time spent is greater than 50% in coordination of care (as documented) at patient's floor/unit and/or counseling patient: Coding Level of Care Code 77618 SUB INP/OBS CARE 3/50MIN Diagnoses Calculus of ureterovesical junction (UVJ) N20.1 SIADH (syndrome of inappropriate ADH production) E22.2 Trigeminal neuralgia G50.0 Hypertension I10
[2023-08-05] MEDS ORDERED: GABAPENTIN 300 MG CAP PO ONE (14:30)
[2023-08-05] MEDS: ACETAMINOPHEN 325 MG TAB PO PRN (18:10)
[2023-08-05] MEDS ORDERED: cefTRIAXone SODIUM 2,000 MG in DEXTROSE 5 % MINI-B 50 ML IV SCH (23:00)
[2023-08-06] MEDS ORDERED: HYDROmorphone INJ 1 MG/ML SYRINGE IV PRN (01:17)
[2023-08-06 08:01] LABS: Basophils # (auto) 0.01 K/uL (0.00-0.20); Basophils % (auto) 0.1 %; Eosinophils # (auto) 0.02 K/uL (0.00-0.50); Eosinophils % (auto) 0.2 %; Hematocrit (blood only) 37.2 % (42.0-52.0); Hemoglobin 13.2 g/dl (14.0-18.0); Immature Granulocytes # (auto) 0.02 K/uL (0.01-0.20); Immature Granulocytes % (auto) 0.2 %; Lymphocytes # (auto) 1.68 K/uL (1.20-3.40); Lymphocytes % (auto) 17.7 %; Mean Corpuscular Hgb Conc 35.5 g/dL (32.0-36.0); Mean Corpuscular Volume 90.1 fL (80.0-100.0); Mean Platelet Volume 9.8 fL (9.4-12.4); Monocytes # (auto) 0.69 K/uL (0.11-0.59); Monocytes % (auto) 7.3 %; Neutrophils # (auto) 7.09 K/uL (1.40-6.50); Neutrophils % (auto) 74.5 %; Platelet Count 237 K/uL (130-400); RDW Coefficient of Variation 11.9 % (11.5-14.5); RDW Standard Deviation 39.8 fL (36.4-46.3); Red Blood Count 4.13 M/uL (4.70-6.10); White Blood Count 9.51 K/ul (4.8-10.8)
--- NOTE | 2023-08-06 08:09 | Urology Progress Note ---
Date of Service August 06, 2023 Assessment & Plan (1) Calculus of ureterovesical junction (UVJ): (2) Left flank pain: Plan 42yo/M admitted with intractable left flank pain secondary to an obstructing 2mm LEFT UVJ stone with moderate periureteral/perinephric fluid concerning for f orniceal rupture - POD #1 s/p Cystoscopy, Left Stent Placement, Ureteroscopy, Stone Extraction with Dr. Krishnamurthy. - Tolerating the ureteral stent with minimal bother. - Afebrile and hemodynamically stable. - Labs reviewed - WBC 9.51, Hemoglobin 13.2, Creatinine 0.82. - UA on arrival without signs of infection or blood. - Ok for discharge from perspective. - Discussed removal of tethered stent at bedside prior to discharge. Patient requesting pain medication before removal, nursing aware. Will reassess. - Continue supportive care and pain management as needed. - Will arrange outpatient follow-up with our service. - Urology will sign-off. Please call with any further questions/concerns. -Patient reassessed. -Tethered stent removed at bedside without difficulty. Patient tolerated well. -Okay for discharge from perspective. -Will arrange outpatient follow-up with our service. -Urology will sign off Admission and Anticipated Discharge Date Admission Date: August 04, 2023 Subjective Pt examined at bedside this AM. Awake, resting in bed on arrival. No acute distress. Tolerating the ureteral stent with minimal bother. Voiding without issue. Reports some hematuria and dysuria as expected. No fevers, chills, nausea, vomiting. Tolerating diet. Review of Systems Constitutional: as per Subjective / HPI Gastrointestinal: as per Subjective / HPI Genitourinary: + as per Subjective / HPI Physical Exam Constitutional: well developed and well nourished; no acute distress Respiratory: normal respiratory effort; no respiratory distress and no labored breathing Skin: No visible rashes or lesions to exposed skin areas Neurologic: moves all extremities and awake Psychiatric: A+Ox3, euthymic affect Results & Data Vital Signs (Past 12 Hours) Vital Signs Temp Pulse Resp BP Pulse Ox O2 Del Method 08/06/23 03:32 36.7 C 66 18 107/62 98 Room Air 08/05/23 22:11 36.8 C 80 18 129/65 96 Room Air PG Care Time/CCT Total # of Minutes Spent Total Time Spent with Patient: Total time spent is greater than 50% in coordination of care (as documented) at patient's floor/unit and/or counseling patient: Coding Level of Care Code 69408 SUB INP/OBS CARE 235MIN Diagnoses Calculus of ureterovesical junction (UVJ) N20.1 Left flank pain R10.9
[2023-08-06 08:16] LABS: Potassium 4.3 mmol/L (3.5-5.1)
[2023-08-06 08:17] LABS: BUN Creatinine Ratio 13.4 (10-20); Calcium 8.9 mg/dl (8.6-10.3); Creatinine Clr Calc Pharmacy 119.7 ml/min; Est GFR (African American) 128.2 ml/min; Est GFR (Non-African American) 110.6 ml/min; Magnesium 2.1 mg/dl (1.7-2.4)
[2023-08-06] MEDS: GABAPENTIN 300 MG CAP PO SCH (08:18)
[2023-08-06] MEDS ORDERED: lisinopril 10 MG TAB PO SCH (09:00)
[2023-08-06] MEDS ORDERED: PHENAZOPYRIDINE HCL 200 MG TAB PO PRN (10:03)
[2023-08-06] MEDS: ACETAMINOPHEN 325 MG TAB PO PRN (11:10)
--- NOTE | 2023-08-06 11:50 | Discharge Summary ---
Date of Service August 06, 2023 Admission HPI Per Admitting Provider The patient is a 42-year-old male with a past medical history including trigeminal neuralgia and hypertension. He presents to the emergency department with acute onset at 530 this evening of left lower quadrant pain. He had no previous occurrence this type of pain. He denies any recent trauma. Significant laboratories: Sodium 126, glucose 107 CT scan abdomen pelvis shows a 2 mm left UVJ stone, with mild left hy dronephrosis, moderate periureteral and perinephric fluid, and concern regarding forniceal or partial ureteral rupture. 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 No rales wheezing or rhonchi Cardiac-regular rate and rhythm, normal S1 and S2 Abdomen-normal bowel sounds, nontender, no hepatosplenomegaly Extremities-no cyanosis, clubbing, or edema Neuro-cranial nerves II through XII intact, motor and sensory function within normal limits, strength symmetrical, no focal deficits Psych-normal affect, normal mood Discharge Data Allergies Allergy/AdvReac Type Severity Reaction Status Date / Time No Known Allergies Allergy Verified 08/04/23 21:37 Consultations 08/04/23 21:46 ED Decision to Admit Stat 08/05/23 06:11 Consult Urology Routine Procedures Performed Operation Date: 08/05/23 08:35 Actual Procedures p Cystoscopy, Left Stent Placement, Ureteroscopy, Stone Extraction(Left) - Martinez Krishnamurthy MD Ordered Studies 08/04/23 19:22 CT Abd and Pelvis [CT abd pelvis IV con only] Stat 08/05/23 13:00 FL KUB Routine Hospital Course (1) Calculus of ureterovesical junction (UVJ): Left side. 2 mm. He underwent cystoscopy with stent placement and stone extraction yesterday, August 05. He is doing well. Stent will be removed today before discharge. Appreciate urology consultation and recommendations. 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 Sodium has now normalized (3) Trigeminal neuralgia: By history. Supportive care. Symptomatic management as needed (4) Hypertension: Stable. Continue current medical management Plan Home today, August 06. Trileptal has been discontinued. Urology will remove the stent before he is discharged. Total Time Total Time Spent Total Time Spent (In Minutes): 40-minute Discharge Plan Discharge Items Patient Disposition: Home - Self-Care Reason For Visit: L UVJ STONE, L HYDRO Discharge Diagnosis: Left ureteral calculus, left ureteral colic, SIADH Activity: Resume your previous activity Non-emergency contact: Primary Care Provider Call non-emergency contact if: you have any medication questions Follow-up/Referrals: Quin Castellano, [Primary Care Provider] - Diet: Regular Addtl Attending Provider Instructions: Trileptal has been discontinued due to low sodium levels Pending Studies at Discharge: No Stand-Alone Forms: [employer] (Service[employer]), Smoking Cessation Medications and DC Order Prescriptions: Continued lisinopril 10 mg tablet 10 mg PO DAILY gabapentin 300 mg capsule 900 mg PO BID Discontinued oxcarbazepine 300 mg tablet 900 mg PO BID Discharge Orders: Discharge Order (Routine); Ordered 08/06/23 Ordered By: Bret Ponce Admission Data Admit Date/Time: 08/04/23 22:21 Attending Provider: Bret Ponce Admit Provider: Bo Walters Primary Care Provider: Quin Castellano Other Providers: Bo Walters ; Jimmie Mijares Coding Level of Care Code 33473 INP/OBS DISCH >30 MIN Diagnoses Calculus of ureterovesical junction (UVJ) N20.1 SIADH (syndrome of inappropriate ADH production) E22.2 Trigeminal neuralgia G50.0 Hypertension I10
[2023-08-12 14:27] LABS: Component 2 DNR; Source LEFT KIDNEY STONE
== END 2023-08-06 13:27 | disposition home or self-care (01) | DRG 660 ==
LOC: ED 18:48 → SUATTDRO 22:21 → INTOOBSV 22:21 → EDINP 22:21 → 3W 08-05 13:53
DX: N13.2 Hydronephrosis with renal and ureteral calculous obstruction; G50.0 Trigeminal neuralgia; I10 Essential (primary) hypertension; T42.1X5A Adverse effect of iminostilbenes, initial encounter; E22.2 Syndrome of inappropriate secretion of antidiuretic hormone; Z79.899 Other long term (current) drug therapy